=== PATIENT | female | born 1965 | race Caucasian/White ===

== ENCOUNTER 2019-10-03 08:04 | Outpatient (CLI) | payer OTHER, SELFPAY ==
--- NOTE | ~2019-10-03 | MM_ITS ---
EXAMINATION: MM screening mich BI w jose HISTORY: Screening mammogram TECHNIQUE: Craniocaudal and mediolateral oblique 3-D tomosynthesis images were obtained and synthetic 2-D images were generated. CAD analysis was submitted and interpreted. COMPARISON: Comparison to multiple prior studies sequentially, with oldest reviewed study dated 07/09. BREAST PARENCHYMAL COMPOSITION: There are scattered areas of fibroglandular density. FINDINGS: There is a focal asymmetry laterally in the right breast on CC view. The left breast is sta ble without evidence for malignancy. IMPRESSION: 1. No focal right breast asymmetry laterally on CC view. 2. Additional mammographic views and possible breast ultrasound are recommended. BI-RADS Category 0: Incomplete: Needs additional imaging evaluation. Reviewed, dictated and finalized at location A. MBLER GARMENT FORM IMPRESSION: 1. No focal right breast asymmetry laterally on CC view. 2. Additional mammographic views and possible breast ultrasound are recommended . BI-RADS Category 0: Incomplete: Needs additional imaging evaluation.
== END 2019-10-03 08:05 | disposition home or self-care (01) ==
PROVIDERS: PCP Internal Medicine; Visit Provider Obstetrics & Gynecology
DX: Z12.31 Encounter for screening mammogram for malignant neoplasm of breast (principal); R92.8 Other abnormal and inconclusive findings on diagnostic imaging of breast
CPT/HCPCS: 77063; 77067

== ENCOUNTER → 2019-10-18 07:30 | Outpatient (CLI) | payer OTHER, SELFPAY ==
--- NOTE | ~2019-10-18 | MMUS_ITS ---
EXAMINATION: MM diagnostic mammo unilat RT, US breast RT limited HISTORY: Right breast asymmetry on screening mammogram TECHNIQUE: Additional 3-D tomosynthesis images of the right breast were performed and synthetic 2-D i mages were generated. CAD analysis was submitted and interpreted. High resolution limited right breas t ultrasound was performed. COMPARISON: 10/03/2019, 09/26/2018, 09/24/2017, 09/17/2016 FINDINGS: MAMMOGRAPHIC FINDINGS: There is a 4 mm oval, obscured, equal density mass in the anterior third of the breast at the 9:00 lo cation 4 cm from the nipple. There is a 4 mm round, low density, obscured mass at the 10:00 location in the middle third of the breast 5.5 cm from the nipple. ULTRASOUND: There is a 4 mm x 2 mm oval, circumscribed, parallel, hypoechoic mass with no posterior features or i nternal vascularity at the 9:00 location 3.5 cm from the nipple. There is a 4 mm round, circumscribed , anechoic mass at the 10:00 location 5 cm from the nipple with no posterior features or internal vas cularity. IMPRESSION: 1. Probably benign mass at the 9:00 location of the right breast. 2. Recommend 6 month follow-up right diagnostic mammogram and ultrasound. BI-RADS category 3, probably benign findings. Reviewed, dictated and finalized at location A. IMPRESSION: 1. Probably benign mass at the 9:00 location of the right breast. 2. Recommend 6 month follow-up right diagnostic mammogram and ultrasound. BI-RADS category 3, probably benign findings.
== END ==
PROVIDERS: PCP Internal Medicine; Visit Provider Obstetrics & Gynecology
DX: R92.8 Other abnormal and inconclusive findings on diagnostic imaging of breast (principal)
CPT/HCPCS: 76642; 77065

== ENCOUNTER 2020-04-22 08:16 | Outpatient (CLI) | payer OTHER, SELFPAY ==
[2020-04-23 14:24] LABS: SARS-CoV-2 RNA PCR Negative
== END 2020-04-22 08:17 | disposition home or self-care (01) ==
PROVIDERS: PCP Internal Medicine; Visit Provider Internal Medicine
DX: Z20.828 Contact with and (suspected) exposure to other viral communicable diseases (principal)
CPT/HCPCS: 87635; C9803; U0003

== ENCOUNTER → 2020-05-13 13:01 | Outpatient (CLI) | payer OTHER, SELFPAY ==
--- NOTE | ~2020-05-13 | MMUS_ITS ---
EXAMINATION: MM diagnostic mich RT w jose, US breast RT limited HISTORY: Follow-up right breast mass TECHNIQUE: Additional 3-D tomosynthesis images of the right breast were performed and synthetic 2-D i mages were generated. CAD analysis was submitted and interpreted. High resolution right breast ultras ound was performed. COMPARISON: Comparison to multiple prior studies sequentially, with oldest reviewed study dated 08/2015. BREAST PARENCHYMAL COMPOSITION: Breast composed of scattered areas of fibroglandular density. FINDINGS: MAMMOGRAPHIC FINDINGS: There are no suspicious masses, calcifications or architectural distortion in the right breast to sug gest malignancy. ULTRASOUND: Limited right breast ultrasound: At 10:00, 5 cm from the nipple, there is a hypoechoic mass measuring 3 mm with low-level internal echoes, no significant posterior features or internal vascularity. No s ignificant interval change to this mass IMPRESSION: 1. Stable 3 mm hypoechoic right breast mass at 10:00, 5 cm from the nipple. 2. Recommend 6 month follow-up right breast ultrasound and bilateral mammogram BI-RADS category 3, probably benign findings. Reviewed, dictated and finalized at location A. IMPRESSION: 1. Stable 3 mm hypoechoic right breast mass at 10:00, 5 cm from the nipple. 2. Recommend 6 month follow-up right breast ultrasound and bilateral mammogram BI-RADS category 3, probably benign findings.
== END ==
PROVIDERS: PCP Internal Medicine; Visit Provider Obstetrics & Gynecology
DX: R92.8 Other abnormal and inconclusive findings on diagnostic imaging of breast (principal)
CPT/HCPCS: 76642; 77061; 77065; G0279

== ENCOUNTER → 2020-11-13 08:38 | Outpatient (CLI) | payer OTHER, SELFPAY ==
--- NOTE | ~2020-11-13 | MMUS_ITS ---
EXAMINATION: MM diagnostic mich BI w jose, US breast RT limited HISTORY: Six-month follow-up of the millimeter hypoechoic right breast mass at 10:00 5 cm from nipple . Screening of left breast. TECHNIQUE: ML, MLO and craniocaudal 3-D tomosynthesis images of both breasts were performed and synth etic 2-D images were generated. CAD analysis was submitted and interpreted. High resolution targeted right breast ultrasound was performed. COMPARISON: 05/13/2020 and 10/18/2019 diagnostic right mammogram and limited right breast ultrasound ex amination 10/03/2019, 09/26/2018 bilateral digital screening mammogram examinations BREAST PARENCHYMAL COMPOSITION: There are scattered areas of fibroglandular density. FINDINGS: MAMMOGRAPHIC FINDINGS: No suspicious mass or architectural distortion, malignant calcification, skin thickening or retractio n or significant new or developing density is detected. ULTRASOUND: 10:00 5 cm from nipple: There is a hypoechoic lesion with irregular margins, measuring 3.6 mm in dept h, 2.7-3 mm width. This may be slightly increased in size since 05/13/2020. The antiparallel configura tion and irregular margins and subtle posterior shadowing are suspicious. Ultrasound-guided biopsy is recommended. IMPRESSION: 1. Suspicious 3.6 mm mass of right breast at 10:00 5 cm from nipple 2. Ultrasound-guided biopsy of right breast 10:00 region is recommended. BI-RADS category 4, suspicious findings. Dr. Baez telephoned the report and ultrasound guided biopsy recommendation on 11/13/[address] Mak Velazquez Reviewed, dictated and finalized at location A. IMPRESSION: 1. Suspicious 3.6 mm mass of right breast at 10:00 5 cm from nipple 2. Ultrasound-guided biopsy of right breast 10:00 region is recommended. BI-RADS category 4, suspicious findings. Dr. Baez telephoned the report and ultrasound guided biopsy recommendation on at [address] Mak Velazquez
== END ==
PROVIDERS: PCP Internal Medicine; Visit Provider Obstetrics & Gynecology
DX: R92.8 Other abnormal and inconclusive findings on diagnostic imaging of breast (principal)
CPT/HCPCS: 76642; 77062; 77066; G0279

== ENCOUNTER 2020-12-11 12:00 | Outpatient (CLI) | payer OTHER, SELFPAY ==
--- NOTE | ~2020-12-11 | CT_ITS ---
EXAMINATION: CT abdomen pelvis w con DATE: 12/11/2020 12:50 INDICATION: Left lower quadrant abdominal pain, diarrhea and fever. TECHNIQUE: Computed tomography (CT) of the abdomen and pelvis was performed with 100 mL Omnipaque-350 intravenous contrast. Automated exposure control and iterative reconstruction technique were employe d. The dose-length product was 551.95 mGy-cm. COMPARISON: None FINDINGS: Lung bases are clear. No pleural effusion. Heart size is normal. Small pericardial effusion. Diffuse hepatic steatosis with more focal fat along the ligamentum teres. Gallbladder, spleen, pancreas and b ilateral adrenal glands are normal. Bilateral subcentimeter low-attenuation renal cysts. Normal appen gallito. Moderate scattered diverticulosis with descending and sigmoid colon predominance. There is focal wall thickening and prominent pericolonic inflammatory stranding centered at a diverticulum at the j unction of the descending and sigmoid colon consistent with diverticulitis. No abscess or free intrap eritoneal gas or fluid. Small bowel is normal with no obstruction. Bladder and anteverted uterus are unremarkable. Likely tubal ligation ring at the right adnexa. A second likely displaced tubal ligatio n ring is seen anteriorly in the left lower quadrant. No pathologically enlarged abdominal or pelvic lymphadenopathy. Mild to moderate lumbar spondylosis. IMPRESSION: 1. Radiographically uncomplicated acute diverticulitis. 2. Small pericardial effusion. 2. Diffuse hepatic steatosis. 4. Likely bilateral tubal ligation rings, the left-sided ring is displaced and located anteriorly in the left lower quadrant. Reviewed, dictated and finalized at location A.
[2020-12-11 12:58] LABS: Basophils Absolute Auto 0.03 K/mm3 (0.00-0.10); Basophils Percent Auto 0.2 % (0.0-1.0); Eosinophils Absolute Auto 0.06 K/mm3 (0.02-0.50); Eosinophils Percent Auto 0.4 % (1.0-6.0); Hematocrit 37.2 % (35.0-49.0); Hemoglobin 11.8 g/dL (12.0-15.0); Immature Granulocyte Absolute 0.07 K/mm3 (0.00-0.00); Immature Granulocyte Percent A 0.5 % (0.0-0.0); Lymphocytes Absolute Auto 2.05 K/mm3 (1.10-4.50); Mean Corpuscular HGB Conc 31.7 g/dL (32.0-36.0); Mean Corpuscular Hemoglobin 29.2 pg (27.0-31.0); Mean Corpuscular Volume 92.1 fL (78.0-102.0); Mean Platelet Volume 9.1 fl (9.2-11.8); Monocytes Absolute Auto 1.42 K/mm3 (0.10-0.90); Monocytes Percent Auto 10.4 % (2.0-11.0); Neutrophils Absolute Auto 10.1 K/mm3 (1.7-7.2); Neutrophils Percent Auto 73.5 % (50.0-70.0); Platelet Count Result 215 K/mm3 (150-420); Red Blood Count 4.04 M/mm3 (4.20-5.40); Red Cell Distribution Width 13.6 % (11.6-14.4); White Blood Count 13.7 K/mm3 (4.8-10.8)
[2020-12-11 13:00] LABS: Add Urine Microscopic? YES; Appearance Urine Clear (Clear); Bilirubin Urine Negative (Negative); Blood Urine 2+ (Negative); Color Urine Yellow (Yellow); Glucose Urine UA Negative (Negative); Ketones Urine Negative (Negative); Leukocyte Esterase Ur Negative LEU/UL (Negative); Nitrate Urine Negative (Negative); Protein Urine Trace (Negative); Urobilinogen Urine 0.2 mg/dL (0.2-1.0); pH Urine 5.5 (5.0-8.0)
[2020-12-11 13:08] LABS: Squamous Epithelial Cell Urine Few /hpf (Few); WBC Urine None seen /hpf (0-3)
[2020-12-11 13:09] LABS: Bacteria Urine Trace /hpf
[2020-12-11 13:13] LABS: Alanine Aminotransferase 28 U/L (14-59); Albumin Level 3.1 g/dL (3.4-5.0); Alkaline Phosphatase 88 U/L (46-116); Anion Gap 6 mmol/L (8-16); Aspartate Amino Transferase 11 U/L (15-37); Bilirubin,Total 0.6 mg/dL (0.00-1.00); Blood Urea Nitrogen 12 mg/dL (7-18); Calcium 8.4 mg/dL (8.5-10.1); Carbon Dioxide 27 mmol/L (21-32); Chloride 103 mmol/L (98-108); Estimated Glomerular Filt Rate > 60; Glucose 113 mg/dL (70-99); Osmolality Calculated 282 mOsm/kg (285-295); Potassium 3.8 mmol/L (3.5-5.1); Sodium 136 mmol/L (136-145); Total Protein 6.4 g/dL (6.4-8.2)
[2020-12-11 13:16] LABS: Lactic Acid 0.7 mmol/L (0.4-2.0)
== END 2020-12-11 12:01 | disposition home or self-care (01) ==
LOC: CHSIMG 12:02
PROVIDERS: PCP Internal Medicine; Visit Provider Internal Medicine
DX: R10.32 Left lower quadrant pain (principal); K57.32 Diverticulitis of large intestine without perforation or abscess without bleeding; I31.3 Pericardial effusion (noninflammatory); K76.0 Fatty (change of) liver, not elsewhere classified
CPT/HCPCS: 36415; 74177; 80053; 81001; 83605; 85025; 87086; 87088; Q9967

== ENCOUNTER 2021-06-25 11:10 | Outpatient (CLI) | payer OTHER, SELFPAY ==
--- NOTE | ~2021-06-25 | CT_ITS ---
EXAMINATION: CT abdomen pelvis w con EXAM DATE: 06/25/2021 12:05 INDICATION: LUQ pain hx of diverticulitis. Nausea. TECHNIQUE: Spiral CT of the abdomen and pelvis was performed following intravenous injection of 100 m L Omnipaque 350. Axial, coronal and sagittal images of the abdomen and pelvis were reviewed. The do se-length product (DLP) for this examination was 546.34 mGy-cm. The exposure was tailored according to patient size (auto mA exposure control), and iterative reconstruction (ASIR) was used as additiona l dose reduction technique. Comparison is made to prior examination from 12/11/2020. FINDINGS: There is hepatic steatosis without suspicious focal lesion identified. Spleen, adrenal glan ds, pancreas are unremarkable. Gallbladder is unremarkable. No biliary obstruction. Portal and spl enic veins are patent. Kidneys enhance symmetrically. There is no hydronephrosis. The uterus is u nremarkable. The bladder is unremarkable. There is no retroperitoneal or pelvic lymphadenopathy. The appendix is normal. There is moderate scattered colonic diverticulosis. Moderate amount of inflam mation along the descending colon, appearance consistent with uncomplicated diverticulitis. No absces s or perforation. This is a different segment of involvement than on prior study from December. The stomac h and small bowel are unremarkable. There is expected amount of colonic stool. No free intraperito bhavana gas. The heart is normal in size. There are no pericardial or pleural effusions. The lung ba ses are unremarkable. There are no osteoblastic or osteolytic lesions identified. IMPRESSION: Descending colonic acute uncomplicated diverticulitis. Reviewed, dictated and finalized at location B. PACKER
[2021-06-25 11:25] LABS: Basophils Absolute Auto 0.03 K/mm3 (0.00-0.10); Basophils Percent Auto 0.3 % (0.0-1.0); Eosinophils Absolute Auto 0.15 K/mm3 (0.02-0.50); Eosinophils Percent Auto 1.4 % (1.0-6.0); Hematocrit 41.6 % (35.0-49.0); Hemoglobin 13.7 g/dL (12.0-15.0); Immature Granulocyte Absolute 0.06 K/mm3 (0.00-0.00); Immature Granulocyte Percent A 0.5 % (0.0-0.0); Lymphocytes Absolute Auto 2.22 K/mm3 (1.10-4.50); Lymphocytes Percent Auto 20.2 % (18.0-42.0); Mean Corpuscular HGB Conc 32.9 g/dL (32.0-36.0); Mean Corpuscular Hemoglobin 29.7 pg (27.0-31.0); Mean Corpuscular Volume 90.2 fL (78.0-102.0); Mean Platelet Volume 8.6 fl (9.2-11.8); Monocytes Absolute Auto 0.99 K/mm3 (0.10-0.90); Neutrophils Absolute Auto 7.6 K/mm3 (1.7-7.2); Neutrophils Percent Auto 68.6 % (50.0-70.0); Platelet Count Result 274 K/mm3 (150-420); Red Blood Count 4.61 M/mm3 (4.20-5.40); Red Cell Distribution Width 13.8 % (11.6-14.4)
[2021-06-25 11:39] LABS: Alanine Aminotransferase 27 U/L (14-59); Albumin Level 3.7 g/dL (3.4-5.0); Alkaline Phosphatase 105 U/L (46-116); Amylase 38 U/L (25-115); Anion Gap 8 mmol/L (8-16); Aspartate Amino Transferase 14 U/L (15-37); Bilirubin,Total 0.7 mg/dL (0.00-1.00); Blood Urea Nitrogen 14 mg/dL (7-18); Carbon Dioxide 29 mmol/L (21-32); Chloride 104 mmol/L (98-108); Estimated Glomerular Filt Rate > 60; Glucose 104 mg/dL (70-99); Lipase 113 U/L (73-393); Osmolality Calculated 292 mOsm/kg (285-295); Sodium 141 mmol/L (136-145); Total Protein 7.5 g/dL (6.4-8.2)
== END 2021-06-25 11:11 | disposition home or self-care (01) ==
PROVIDERS: PCP Internal Medicine; Visit Provider Nurse Practitioner Family
DX: R10.12 Left upper quadrant pain (principal); K57.92 Diverticulitis of intestine, part unspecified, without perforation or abscess without bleeding
CPT/HCPCS: 36415; 74177; 80053; 82150; 83690; 85025; 87040; Q9967

== ENCOUNTER 2021-07-20 15:24 | Outpatient (CLI) | payer OTHER, SELFPAY ==
[2021-07-20 15:52] LABS: Basophils Absolute Auto 0.03 K/mm3 (0.00-0.10); Basophils Percent Auto 0.4 % (0.0-1.0); Eosinophils Absolute Auto 0.17 K/mm3 (0.02-0.50); Eosinophils Percent Auto 2.5 % (1.0-6.0); Hematocrit 40.5 % (35.0-49.0); Hemoglobin 12.9 g/dL (12.0-15.0); Immature Granulocyte Absolute 0.03 K/mm3 (0.00-0.00); Immature Granulocyte Percent A 0.4 % (0.0-0.0); Lymphocytes Absolute Auto 2.46 K/mm3 (1.10-4.50); Lymphocytes Percent Auto 36.8 % (18.0-42.0); Mean Corpuscular HGB Conc 31.9 g/dL (32.0-36.0); Monocytes Absolute Auto 0.77 K/mm3 (0.10-0.90); Monocytes Percent Auto 11.5 % (2.0-11.0); Neutrophils Absolute Auto 3.2 K/mm3 (1.7-7.2); Neutrophils Percent Auto 48.4 % (50.0-70.0); Platelet Count Result 331 K/mm3 (150-420); Red Blood Count 4.45 M/mm3 (4.20-5.40); Red Cell Distribution Width 13.7 % (11.6-14.4); White Blood Count 6.7 K/mm3 (4.8-10.8)
[2021-07-20 16:35] LABS: Alanine Aminotransferase 28 U/L (14-59); Alkaline Phosphatase 81 U/L (46-116); Anion Gap 11 mmol/L (8-16); Aspartate Amino Transferase 17 U/L (15-37); Bilirubin,Total 0.4 mg/dL (0.00-1.00); Blood Urea Nitrogen 17 mg/dL (7-18); CRP 1.7 mg/dL (0.0-0.9); Calcium 8.8 mg/dL (8.5-10.1); Carbon Dioxide 29 mmol/L (21-32); Chloride 105 mmol/L (98-108); Estimated Glomerular Filt Rate 49; Glucose 102 mg/dL (70-99); Osmolality Calculated 301 mOsm/kg (285-295); Potassium 4.4 mmol/L (3.5-5.1); Sodium 145 mmol/L (136-145)
[2021-07-20 18:20] LABS: Erythrocyte Sedimentation Rate 41 mm/hr (0-20)
[2021-07-24 14:20] LABS: ANCA Screen Negative (Negative); Myeloperoxidase Ab <1.0 AI (<1.0); Proteinase-3 Ab <1.0 AI (<1.0); S cerevisiae Ab (IgA) 5.1 U (<=20.0); S cerevisiae Ab (IgG) 9.2 U (<=20.0)
== END 2021-07-20 15:25 | disposition home or self-care (01) ==
LOC: CHSLAB 15:26
PROVIDERS: PCP Internal Medicine; Visit Provider Internal Medicine
DX: R19.7 Diarrhea, unspecified (principal)
CPT/HCPCS: 36415; 80053; 85025; 85652; 86021; 86140; 86671

== ENCOUNTER 2021-07-21 09:10 | Outpatient (CLI) | payer OTHER, SELFPAY ==
[2021-07-27 23:04] LABS: Calprotectin, Stool 20 mcg/g
== END 2021-07-21 09:11 | disposition home or self-care (01) ==
LOC: CHSLAB 09:11
PROVIDERS: PCP Internal Medicine; Visit Provider Internal Medicine
DX: R19.7 Diarrhea, unspecified (principal)
CPT/HCPCS: 83993; 87045; 87324; 87427

== ENCOUNTER 2021-07-29 10:18 | Outpatient (CLI) | payer OTHER, SELFPAY | END 2021-07-29 10:19 | disposition home or self-care (01) | LOC: CHSLAB 10:19 | PROVIDERS: PCP Internal Medicine; Visit Provider Internal Medicine | DX: R19.7 Diarrhea, unspecified (principal) | CPT/HCPCS: 87324 ==

== ENCOUNTER 2025-03-04 08:18 | Outpatient (CLI) | payer OTHER, SELFPAY ==
--- NOTE | ~2025-03-04 | DEXA_ITS ---
Bone Density Report Name: YARA ALLEN Age: 59 Sex: Female Ethnicity: White Date of : 1965 Indication: postmenopausal; screening for osteoporosis; height loss; Referring Provider: Tatyana Geronimo Study: Bone densitometry was performed. Exam Date: March 04, 2025 Accession number: [id number] Bone Density: Region BMD T-score Z-score Classification AP Spine(L1-L4) 0.935 -1.0 0.3 Normal Femoral Neck (Left) 0.815 -0.3 0.9 Normal Total Hip (Left) 0.981 0.3 1.2 Normal Femoral Neck (Right) 0.852 0.0 1.3 Normal Total Hip (Right) 0.991 0.4 1.3 Normal Total Hip Mean 0.986 0.4 1.3 Normal World Health Organization criteria for BMD impression classify patients as: Normal (T-score at or above -1.0), Osteopenia (T-score between -1.0 and -2.5), or Osteoporosis (T-score at or below -2.5). 10-year Fracture Risk: FRAX not reported because: All T-scores for Spine Total, Hip Total, Femoral Neck at or above -1.0 Clinical Information Provided by Patient: Patient maximum height was 66 Menopause Age: 45 No regular weight bearing exercise Does not regularly consume dairy products Onset of menses at age 11 Number of children 3 Missed period for more than 6 months in a row Impression: The patient has normal bone mass. Discussion: BONE DENSITY IS ABOVE THE MINIMUM DESIRABLE LEVEL AT ALL SKELETAL SITES TESTED. This patient?s bone mineral density is above the minimum desirable level (T-score -1.0 or better) at all sites measured. The patient should follow a healthful lifestyle (good nutrition with adequate calcium and vitamin D, and appropriate weight-bearing exercise). Follow-Up: Consider repeating this study in 5 years or sooner if there is some new clinical indication. Reported by: DAVID on 03/04/2025 8:42:00 AM. Reviewed, dictated and finalized at location A.
== END 2025-03-04 08:19 | disposition home or self-care (01) ==
LOC: MICIMG 08:18
PROVIDERS: PCP Internal Medicine; Visit Provider Internal Medicine
DX: M81.0 Age-related osteoporosis without current pathological fracture (principal)
CPT/HCPCS: 77080

== ENCOUNTER 2025-06-24 16:30 | Outpatient (CLI) | payer OTHER, SELFPAY ==
--- NOTE | ~2025-06-24 | XR_ITS ---
XR_[id number]_CR Indication: Neck Injury Comparison: None Findings: Grade 1 retrolisthesis of C4 on C5, no fracture. Severe loss of disc height at C4-5. Soft tissues unremarkable Impression: No acute abnormality. Reviewed, dictated and finalized at location P. FISHER Impression: No acute abnormality.
--- OUTSIDE RECORDS SUMMARY | 2025-06-25 01:42 | XMS_ITS | Clinical Summary ---
Author Organization [facility] Address [address] [place] [address] Care Team Providers Care Motor Inspection Mechanic Name Role Phone Tatyana Geronimo MD Primary Care Provider + [phone] Allergies No known active allergies Medications zolpidem (AMBIEN) 10 mg tablet 0 Active mirtazapine (REMERON) 15 mg tablet 0 Active ibuprofen (ADVIL,MOTRIN) 200 mg tab/cap Take 3 tablet/capsu le (600 mg total) by mouth every 6 (six) hours as needed for pain Active FLUoxetine 10 mg capsule 2 Active buPROPion XL (WELLBUTRIN XL) 150 mg 24 hr tablet 2 Active benzonatate (TESSALON) 200 mg capsuleIndication s:Acute non-recurrent pansinusitis Take 1 capsule (200 mg total) by mouth 3 (three) times a day as needed for cough 30 capsule 2 Active phentermine 30 mg capsule 0 3 Active scopolamine 1 mg over 3 days patch 3 day 3 Active meloxicam (MOBIC) 15 mg tablet Take 1 tablet (15 mg total) by mouth daily 90 tablet 3 Active Active Problems Problem Noted Date Diagnosed Date Diverticulitis 07/28/2021 Overview (07/28/2021): Added automatically from request for surgery [id number] Encounter for screening colonoscopy 07/28/2021 Overview (07/28/2021): Added automatically from request for surgery [id number] Abnormal mammogram of right breast 11/27/2020 Immunizations Immunization Administration Dates Next Due Hep A, Adult 10/04/2001,03/29/2001 Surgical History Surgery Date Site/Laterality Comments COLONOSCOPY 5 yrs ago Medical History Medical History Date Comments Colon polyp Diverticulosis Family History Medical History Relation Name Comments Heart disease Father COPD Mother Hypertension Mother Heart disease Sister Relation Name Status Comments Father Mother Sister Social History Tobacco Use Types Packs/Day Years Used Date Smoking Tobacco: Never Smokeless Tobacco: Never Comments No Sex and Gender Information Value Date Recorded Sex Assigned at Not on file Legal Sex Female 3:46 AM RN NEUROLOGY Gender Identity Female 07/14/2020 9:21 AM RN NEUROLOGY Sexual Orientation Straight 07/14/2020 9: 21 AM RN NEUROLOGY Obstetrics History Para Term AB IAB SAB Ectopic Multiple Livin g Live Births 3 3 3 Date Outcome GA Total Labor Labor/2nd/3rd Weight Sex Type Anes PTL Caroline A1 A5 Name Clin Term Term Term Last Filed Vital Signs Vital Sign Reading Time Taken Comments Blood Pressure 148/83 05/19/2022 2:09 PM CDT Pulse 80 05/19/2022 2:09 PM CDT Temperature 37 C (98.6 F) 05/19/2022 2:09 PM CDT Respiratory Rate 16 05/19/2022 2:09 PM CDT Oxygen Saturation 98% 05/19/2022 2:09 PM CDT Inhaled Oxygen Concentration - - Weight 70.3 kg (155 lb) 01/14/2025 8:50 AM CDT Height 167.6 cm (5' 6) 01/14/2025 8:47 AM CDT Body Mass Index 25.02 01/14/2025 8:47 AM CDT Plan of Treatment Health Maintenance Due Date Last Done Comments Cervical Cancer Screening 1965 Depression Screening 1965 Hepatitis C Screening 1965 DTaP/Tdap/Td Vaccine (1 - Tdap) 1976 Hepatitis B Screening 11/13/1983 Regular Well Visit/Exam 18-64 11/13/1983 Zoster Vaccine (1 of 2) 11/13/2015 Influenza Vaccine (#1) 2025 Breast Cancer Screening-Mammogram 01/14/2026 01/14/2025, 01/11/2024, 12/09/2022, Additional history exists Colon Cancer Screening-Colonoscopy 09/21/2031 09/21/2021 Colon Cancer Screening-CT Colonography Discontinued 09/21/2021 Colon Cancer Screening-DNA Stool Discontinued 09/21/2021 Colon Cancer Screening-FIT Discontinued 09/21/2021 Colon Cancer Screening-Sigmoidoscopy Discontinued 09/21/2021 Pneumococcal vaccine <65 Aged Out No longer eligible based on patient's age to complete this topic Procedures Procedure Name Priority Date/Time Associated Diagnosis Comments SCREENING MAMMOGRAM BILATERAL W LUIS A Schedule Routine, Read Routine (OP Routine) 01/14/2025 8:51 AM CDT Screening mammogram, encounter for COLONOSCOPY 09/21/2021 9:44 AM RN NEUROLOGY from Last 3 Months or Most Recently Relevant to Health Maintenance Results * Screening Mammogram Bilateral W Luis A (01/14/2025 8:51 AM CDT) Anatomical Region Laterality Modality Breast Bilateral Mammography Impressions 01/15/2025 12:41 PM CDT Bilateral No evidence of malignancy in either breast. OVERALL BI-RADS FINAL ASSESSMENT: 1 - Negative RECOMMENDATION: Recommend bilateral annual screening mammography. Narrative 01/15/2025 12:41 PM CDT EXAMINATION: Screening Mammogram Bilateral W Luis A: 01/14/2025 COMPARISON: Relevant prior studies available at the time of interpretation were reviewed. TECHNIQUE: Mammography was performed with 2D and digital breast tomosynthesis (DBT) images. CAD was utilized. BREAST PARENCHYMAL COMPOSITION: The breasts are almost entirely fatty. FINDINGS: Bilateral There is no suspicious mass, calcification, or architectural distortion in either breast. us Self Screening Mammogram IMG MAMMO PROCEDURES Fi nal Result * COLONOSCOPY (09/21/2021 9:44 AM RN NEUROLOGY) Anatomical Region Laterality Modality Other Narrative Procedure Note Chuck Ferrer MD - 09/21/2021 9:44 AM CST [facility] Patient Name: Sobia Cespedes Procedure Date: 09/21/2021 9:44 AM Date of : 1965 Admit Type: Outpatient Age: 55 Gender: Female Attending MD: Chuck Ferrer M.D. [facility] 2 Note Status: Finalized Patient Profile: Refer to note in patient chart for documentation of history and physical. Procedure: Colonoscopy Indications: Last colonoscopy: 2016, Follow-up ofdiverticulitis Referring MD: Tatyana Geronimo MD Providers: Chuck Ferrer M.D. Impression: - Hemorrhoids found on perianal exam. - Diverticulosis in the sigmoid colon, in the descending colon, in the transverse colon and atthe hepatic flexure. - Two 2 to 3 mm polyps in the transverse colon andin the ascending colon, removed with a jumbo cold forceps. Resected and retrieved. - The examination was otherwise normal. Recommendation: - Discharge patient to home. - Resume previous diet. - Continue present medications. - Await pathology results. - Repeat colonoscopy in 5 years for surveillance. - Return to primary care physician as previously scheduled. Medicines: Propofol per Anesthesia Complications: No immediate complications. Estimated Blood Loss: Estimated blood loss: none. Procedure: Pre-Anesthesia Assessment: - This assessment was completed [Time ofAssessment] prior to the administration of sedation. The benefits, risks and alternatives of theprocedure and sedation were discussed and informed consentwas obtained. All questions were answered. Please referto the signed informed consent document in the medical record. The bowel preparation used was Miralax and bisacodyl tablets via single dose instruction. The scope was passed under direct vision. TheColonoscope [id number] was introduced through the anus and advanced to the the cecum, identified by appendiceal orifice and ileocecal valve. The colonoscopy was performed without difficulty. The patient tolerated the procedure well. The qualityof the bowel preparation was excellent. Findings: Hemorrhoids were found on perianal exam. Multiple small and large-mouthed diverticula were found in thesigmoid colon, descending colon, transverse colon and hepatic flexure. Two sessile polyps were found in the transverse colon and ascending colon. The polyps were 2 to 3 mm in size. These polyps were removedwith a jumbo cold forceps. Resection and retrieval were complete. Verification of patient identification for the specimen was done bythe physician and nurse using the patient's name and date.Estimated blood loss was minimal. The exam was otherwise without abnormality. Electronically signed by Chuck Ferrer M.D. Chuck eFrrer M.D. 09/21/2021 11:27:51 AM Number of Addenda: 0 Note Initiated On: 09/21/2021 9:44 AM Procedure Code(s): --- Professional --- 50413, Colonoscopy, flexible; with biopsy, single or multiple Diagnosis Code(s): --- Professional --- K57.30, Diverticulosis of large intestine without perforation orabscess without bleeding K57.32, Diverticulitis of large intestine without perforation orabscess without bleeding K63.5, Polyp of colon K64.9, Unspecified hemorrhoids CPT copyright 2019 [employer]. All rights reserved. The codes documented in this report are preliminary and upon weight caller reviewmay be revised to meet current compliance requirements. Recognized by the [employer] for promoting quality in endoscopy Chuck Ferrer MD ENDOSCOPY PROCEDURES Final Re sult from Last 3 Months or Most Recently Relevant to Health Maintenance Insurance [employer] Advance Directives For more information, please contact: [phone] * Full Code (Latest Code Status on File) Date Activated Date Inactivated Comments 09/21/2021 10:08 AM 09/21/2021 5:06 PM * Full Code Date Activated Date Inactivated Comments 09/21/2021 10:08 AM 09/21/2021 10:08 AM Care Teams Motor Inspection Mechanic Relationship Specialty Start Date End Date Tatyana Geronimo MD [address] [place] [address] PCP - General Internal Medicine 05/14/19
== END 2025-06-24 16:31 | disposition home or self-care (01) ==
LOC: CHSIMG 16:31
PROVIDERS: PCP Internal Medicine; Visit Provider Internal Medicine
DX: S19.9XXA Unspecified injury of neck, initial encounter (principal)
CPT/HCPCS: 72040

== ENCOUNTER 2025-07-11 16:14 | Outpatient (CLI) | payer OTHER, SELFPAY ==
--- NOTE | ~2025-07-11 | MR_ITS ---
EXAMINATION: MR cervical spine wo con DATE: 07/11/2025 17:16 INDICATION: Neck pain. TECHNIQUE: Magnetic resonance imaging (MRI) of the cervical spine was performed without intravenous contrast. COMPARISON: Cervical spine radiographs 06/24/2025 FINDINGS: There is mild kyphosis of cervical spine. There is 5 degrees dextrocurvature of cervical spine. Vertebral body heights are normal. There is severely decreased disc height at C4-C5 and moderately decreased disc height at C5-C6 and C6-C7. The spinal cord signal intensity is normal. The following disc levels are specifically discussed: C2-C3: There is a central extrusion. There is no uncovertebral joint osteoarthritis. There is mild bilateral facet joint osteoarthritis. There is no neural foraminal stenosis. There is mild central canal stenosis. C3-C4: The disc is bulging. There is mild right and moderate left uncovertebral joint osteoarthritis. There is moderate bilateral facet joint osteoarthritis. There is mild left neural foraminal stenosis. There is mild central canal stenosis. C4-C5: The disc is bulging. There is severe bilateral uncovertebral joint osteoarthritis. There is mild right and moderate left facet joint osteoarthritis. There is mild bilateral neural foraminal stenosis. There is mild central canal stenosis. C5-C6: The disc is bulging. There is severe bilateral uncovertebral joint osteoarthritis. There is mild bilateral facet joint osteoarthritis. There is mild bilateral neural foraminal stenosis. There is mild central canal stenosis. C6-C7: The disc is bulging. There is moderate right and severe left uncovertebral joint osteoarthritis. There is mild bilateral facet joint osteoarthritis. There is mild bilateral neural foraminal stenosis. There is mild central canal stenosis. C7-T1: There is a central protrusion. There is no uncovertebral joint osteoarthritis. There is severe right and moderate left facet joint osteoarthritis. There is mild bilateral neural foraminal stenosis. There is mild central canal stenosis. IMPRESSION: 1. Severe cervical spondylosis. Reviewed, dictated and finalized at location E. ENERGY INSPECTOR
== END 2025-07-11 16:15 | disposition home or self-care (01) ==
PROVIDERS: PCP Internal Medicine; Visit Provider Internal Medicine
DX: M54.2 Cervicalgia (principal); M43.02 Spondylolysis, cervical region
CPT/HCPCS: 72141